=== PATIENT | female | born 1990 | race Caucasian/White ===

== ENCOUNTER 2017-02-05 09:13 | Emergency (ER) | payer MEDICAID ==
[2017-02-05 09:26] VITALS: BP 130/91; PULSE 83; RESP 18; TEMP 97.7; O2SAT 94
[2017-02-05 09:36] LABS: COLOR YELLOW; LEUKOCYTE ESTERASE,URINE TRACE (NEGATIVE); NITRITE,URINE NEGATIVE (NEGATIVE); PH,URINE 6.5 (5.0-7.5)
--- NOTE | 2017-02-05 09:43 | EDPHY ---
H & P Time Seen by Provider: 02/05/17 09:29 HPI/ROS: CHIEF COMPLAINT: "I think I have a urinary tract infection " HISTORY OF PRESENT ILLNESS: The patient is a 18-year-old female who presents to the emergency department with symptoms of urinary tract infection. Patient states her symptoms been present for 2 days. Patient notices urgency, mild dysuria and frequency. She has no abdominal pain. No nausea or vomiting. No flank pain. No fevers or chills. Her last menstrual period was 1 month ago. She has not been sexually active for some time. REVIEW OF SYSTEMS: My complete review of systems is negative except as mentioned in the HPI. Past Medical/Surgical History: Includes remote history of urinary tract infection Past surgical history: Negative Social history: The patient does not smoke Smoking Status: Never smoked Physical Exam: Vitals noted. Afebrile GENERAL: Well-appearing, in no acute distress, alert. HEENT: Normal appearing RESPIRATORY: Clear to auscultation bilaterally, no rales, rhonchi or wheezing. CVS: Regular rate and rhythm, no rubs, murmurs, or gallops. ABDOMEN: Soft, nontender, nondistended, no organomegaly. BACK: Normal to inspection, no CVA tenderness. SKIN: Normal color, no rash, warm, dry. No pallor. EXTREMITIES: Normal. NEURO/PSYCH: Alert and oriented, normal mood and affect Constitutional: Initial Vital Signs Temperature (C) 36.5 C 02/05/17 09:25 Heart Rate 83 02/05/17 09:25 Respiratory Rate 18 02/05/17 09:25 Blood Pressure 130/91 H 02/05/17 09:25 O2 Sat (%) 94 02/05/17 09:25 O2 Delivery Mode Room Air Allergies/Adverse Reactions: No Known Allergies Allergy (Unverified 02/05/17 09:25) Home Medications: Medication Instructions Recorded Cephalexin [Keflex (*)] 500 mg PO QID #12 cap 02/05/17 Medical Decision Making ED Course/Re-evaluation: In the emergency department I discussed possible etiologies with the patient. I answered all her questions. UA was obtained. UA: Positive for white cells. negative. I discussed the results with the patient. She will be given a course of Keflex. She was given warnings prior to leaving. Differential Diagnosis: Differential includes but is not limited to urinary tract infection, pyelonephritis, ovarian cyst, ovarian torsion, , ectopic - Data Points Laboratory Results: 02/05/17 02/05/17 02/05/17 09:25 09:20 09:20 Urine Color YELLOW Urine Appearance CLEAR Urine pH 6.5 (5.0-7.5) Ur Specific [place] 1.020 (1.002-1.030) Urine Protein NEGATIVE (NEGATIVE) Urine Ketones NEGATIVE (NEGATIVE) Urine Blood TRACE H (NEGATIVE) Urine Nitrate NEGATIVE (NEGATIVE) Urine Bilirubin NEGATIVE (NEGATIVE) Urine Urobilinogen 0.2 EU EU (0.2-1.0) Ur Leukocyte Esterase TRACE H (NEGATIVE) Urine RBC Cancelled 1-3 /hpf /hpf (0-3) Urine WBC Cancelled 3-5 /hpf H /hpf (0-3) Ur Epithelial Cells Cancelled TRACE /lpf /lpf (NONE-1+) Ur Renal Epithelial Cell Cancelled Urine Crystals Cancelled Ammonium Urate Crystals Cancelled Calcium Carbonate Cryst Cancelled Calcium Phosphate Cryst Cancelled Calcium Oxalate Crystal Cancelled Leucine Crystals Cancelled Cystine Crystals Cancelled Uric Acid Crystals Cancelled Triple Phos Crystals Cancelled Sodium Urate Crystals Cancelled Sulfonamide Crystals Cancelled Cholesterol Crystals Cancelled Tyrosine Crystals Cancelled Bilirubin Crystals Cancelled Amorphous Sediment Cancelled Urine Bacteria Cancelled TRACE /hpf H /hpf (NONE SEEN) Epithelial Casts Cancelled Fatty Casts Cancelled Hyaline Casts Cancelled Granular Casts Cancelled Waxy Casts Cancelled Broad Casts Cancelled RBC Casts Cancelled WBC Casts Cancelled Urine Mucus Cancelled TRACE /lpf /lpf (NONE-1+) Urine Trichomonas Cancelled Urine Yeast Cancelled Urine Sperm Cancelled Ur Oval Fat Bodies Cancelled Ur Free Fat Droplets Cancelled Ur Unidentified Matter Cancelled Urine Glucose NEGATIVE (NEGATIVE) Urine Test NEGATIVE Urine Comment Cancelled Departure - Departure Disposition: Home, Routine, Self-Care Clinical Impression: Urinary tract infection Qualifiers: Urinary tract infection type: acute cystitis Hematuria presence: without hematuria Qualified Code(s): N30.00 - Acute cystitis without hematuria Condition: Good Instructions: Urinary Tract Infection in Women (ED), Dysuria (ED) Additional Instructions: Take your entire course of antibiotics. Return with worsening symptoms such as increasing abdominal pain, fever, back pain or any other concerns. Referrals: Fanestil,Fili D, MD [Medical Doctor] - 5-7 days, if not improved
[2017-02-05 11:26] LABS: WBC,URINE 15-25 /hpf (0-3)
[2017-02-05 11:27] LABS: MUCUS 2+ /lpf (NONE-1+)
[2017-02-05 11:28] LABS: BACTERIA 2+ /hpf (NONE SEEN); HYALINE CASTS 0-1 /lpf (0-1)
== END 2017-02-05 10:08 | disposition home or self-care (01) ==
LOC: CED 09:13
DX: N30.00 Acute cystitis without hematuria (principal)
CPT/HCPCS: 81003-PO; 81015-PO; 81025-PO